=== PATIENT | female | born 1995 | race Caucasian/White ===

== ENCOUNTER 2017-07-31 13:26 | Emergency (ER) | payer BC ==
[2017-07-31] MEDS ORDERED: ACETAMINOPHEN TAB 500 MG TAB PO STA (13:57)
[2017-07-31] MEDS ORDERED: cefTRIAXone IN SWFI 1,000 MG/10 ML SYRINGE IVP STA (13:57)
[2017-07-31] MEDS ORDERED: KETOROLAC 30 MG/ML 1 ML VIAL IVP STA (13:57)
[2017-07-31] MEDS ORDERED: ONDANSETRON 4 MG/2 ML VIAL IVP STA (14:22)
--- NOTE | 2017-07-31 14:22 | ED ---
General Adult HPI - General Chief complaint: Fever Stated complaint: fever/LLQ & flank pain Time Seen by Provider: 07/31/17 13:57 Source: patient, RN notes reviewed Mode of arrival: ambulatory Limitations: no limitations - History of Present Illness Initial comments: 22 yo female presents to the ER with cc of fever. Patient has had this fever starting today. She also admits to some dysuria and left flank pain. She states she has generalized body aches as well. She went to little cough cold like symptoms. She went to urgent care and they were suspicious for UTI and they sent her here. No Motrin or Tylenol today. Patient states that now health history no meds every day. Patient denies any recent shortness of breath , chest pain, abdominal pain, nausea vomiting, numbness or tingling, hematuria , constipation or diarrhea, headaches or visual changes, or any other current symptoms. - Related Data Home Medications Medication Instructions Recorded Confirmed Amoxicillin 1,000 mg PO ONCE 07/31/17 07/31/17 Ibuprofen [Motrin] 800 mg PO Q6H PRN 07/31/17 07/31/17 Tylenol Cold/Flu Liq 30 ml PO Q4H PRN 07/31/17 07/31/17 Previous Rx's Medication Instructions Recorded Cephalexin [Keflex] 500 mg PO Q6HR #40 cap 07/31/17 Allergies Allergy/AdvReac Type Severity Reaction Status Date / Time No Known Allergies Allergy Verified 07/31/17 14:00 Review of Systems ROS Statement: Those systems with pertinent positive or pertinent negative responses have been documented in the HPI. ROS Other: All systems not noted in ROS Statement are negative. Past Medical History Past Medical History: No Reported History History of Any Multi-Drug Resistant Organisms: None Reported Past Surgical History: No Surgical Hx Reported Past Psychological History: No Psychological Hx Reported Smoking Status: Never smoker Past Alcohol Use History: Occasional Past Drug Use History: Marijuana General Exam - General Exam Comments Initial Comments: General: The patient is awake and alert, in no distress, and does not appear acutely ill. Eye: Pupils are equal, round. Ears, nose, mouth and throat: There are moist mucous membranes. Tympanic membranes normal bilaterally. No erythema in the posterior pharynx Neck: The neck is supple, there is no tenderness. Cardiovascular: There is a regular rate and rhythm. No murmur, rub or gallop is appreciated. Respiratory: Lungs are clear to auscultation, respirations are non-labored, breath sounds are equal. No wheezes, stridor, rales, or rhonchi. Gastrointestinal: Soft, non-distended, non-tender abdomen without masses or organomegaly noted. There is no rebound or guarding present. No CVA tenderness. Bowel sounds are unremarkable. Back: There is no tenderness to palpation in the midline. There is no obvious deformity. No rashes noted. Musculoskeletal: Normal ROM, no tenderness, There is no pedal edema. There is no calf tenderness or swelling. Sensation intact. Pulses equal bilaterally 2+. Neurological: CN II-XII intact, There are no obvious motor or sensory deficits. Coordination appears grossly intact. Speech is normal. Skin: Skin is warm and dry and no rashes or lesions are noted. Psychiatric: Cooperative, appropriate mood & affect, normal judgment. Limitations: no limitations Course Vital Signs 07/31/17 07/31/17 13:47 15:15 Temperature 102.2 F H 99.4 F Pulse Rate 106 H Respiratory 22 Rate Blood Pressure 133/67 O2 Sat by Pulse 96 Oximetry Medical Decision Making - Medical Decision Making 22-year-old female presents emergencydepartment with chief complaint of fever. At this time patient's lab work has been reviewed. This time we discussed suspicion for acute pyelonephritis. This time we did discuss that we like to admit the patient. She states that she would rather go home. This time she did receive IV antibiotics as well as IV fluids. Fever has improved. This time we discussed that we will discharge her home on outpatient antibiotics however she may get worse and she may require hospitalization. We discussed return parameters physically. We did discuss the importance of listening to the and to come back if this occurs. Patient and family stated they understood and management this plan. All questions have been answered. At this time they will be discharged home with proper follow-up information. - Lab Data Result diagrams: 07/31/17 14:15 07/31/17 14:15 Lab Results 07/31/17 07/31/17 07/31/17 Range/Units 14:15 14:15 14:15 WBC 14.7 H (4.0-11.0) k/uL RBC 4.72 (3.80-5.40) m/uL Hgb 14.0 (11.4-16.0) gm/dL Hct 42.7 (34.0-46.0) % MCV 90.6 (80.0-100.0) fL MCH 29.7 (25.0-35.0) pg MCHC 32.8 (31.0-37.0) g/dL RDW 11.8 (11.5-15.5) % Plt Count 248 (150-450) k/uL Neutrophils % 83 % Lymphocytes % 8 % Monocytes % 8 % Eosinophils % 1 % Basophils % 0 % Neutrophils # 12.1 H (1.3-7.7) k/uL Lymphocytes # 1.2 (1.0-4.8) k/uL Monocytes # 1.2 H (0-1.0) k/uL Eosinophils # 0.1 (0-0.7) k/uL Basophils # 0.0 (0-0.2) k/uL Sodium 136 L (137-145) mmol/L Potassium 4.0 (3.5-5.1) mmol/L Chloride 99 (98-107) mmol/L Carbon Dioxide 25 (22-30) mmol/L Anion Gap 12 mmol/L BUN 10 (7-17) mg/dL Creatinine 0.73 (0.52-1.04) mg/dL Est GFR (MDRD) Af Amer >60 (>60 ml/min/1.73 sqM) Est GFR (MDRD) Non-Af >60 (>60 ml/min/1.73 sqM) Glucose 108 H (74-99) mg/dL Calcium 9.9 (8.4-10.2) mg/dL Total Bilirubin 0.8 (0.2-1.3) mg/dL AST 17 (14-36) U/L ALT 23 (9-52) U/L Alkaline Phosphatase 67 (38-126) U/L Total Protein 7.2 (6.3-8.2) g/dL Albumin 4.2 (3.5-5.0) g/dL Urine Color Urine Appearance (Clear) Urine pH (5.0-8.0) Ur Specific [place] (1.001-1.035) Urine Protein (Negative) Urine Glucose (UA) (Negative) Urine Ketones (Negative) Urine Blood (Negative) Urine Nitrite (Negative) Urine Bilirubin (Negative) Urine Urobilinogen (<2.0) mg/dL Ur Leukocyte Esterase (Negative) Urine RBC (0-5) /hpf Urine WBC (0-5) /hpf Urine WBC Clumps (None) /hpf Urine Bacteria (None) /hpf Urine Mucus (None) /hpf Urine HCG, Qual (Not Detectd) Influenza Type A RNA Not Detected (Not Detectd) Influenza Type B (PCR) Not Detected (Not Detectd) 07/31/17 07/31/17 Range/Units 14:15 14:15 WBC (4.0-11.0) k/uL RBC (3.80-5.40) m/uL Hgb (11.4-16.0) gm/dL Hct (34.0-46.0) % MCV (80.0-100.0) fL MCH (25.0-35.0) pg MCHC (31.0-37.0) g/dL RDW (11.5-15.5) % Plt Count (150-450) k/uL Neutrophils % % Lymphocytes % % Monocytes % % Eosinophils % % Basophils % % Neutrophils # (1.3-7.7) k/uL Lymphocytes # (1.0-4.8) k/uL Monocytes # (0-1.0) k/uL Eosinophils # (0-0.7) k/uL Basophils # (0-0.2) k/uL Sodium (137-145) mmol/L Potassium (3.5-5.1) mmol/L Chloride (98-107) mmol/L Carbon Dioxide (22-30) mmol/L Anion Gap mmol/L BUN (7-17) mg/dL Creatinine (0.52-1.04) mg/dL Est GFR (MDRD) Af Amer (>60 ml/min/1.73 sqM) Est GFR (MDRD) Non-Af (>60 ml/min/1.73 sqM) Glucose (74-99) mg/dL Calcium (8.4-10.2) mg/dL Total Bilirubin (0.2-1.3) mg/dL AST (14-36) U/L ALT (9-52) U/L Alkaline Phosphatase (38-126) U/L Total Protein (6.3-8.2) g/dL Albumin (3.5-5.0) g/dL Urine Color Yellow Urine Appearance Turbid H (Clear) Urine pH 5.5 (5.0-8.0) Ur Specific [place] 1.011 (1.001-1.035) Urine Protein 2+ H (Negative) Urine Glucose (UA) Negative (Negative) Urine Ketones 1+ H (Negative) Urine Blood Moderate H (Negative) Urine Nitrite Negative (Negative) Urine Bilirubin Negative (Negative) Urine Urobilinogen <2.0 (<2.0) mg/dL Ur Leukocyte Esterase Large H (Negative) Urine RBC 29 H (0-5) /hpf Urine WBC >182 H (0-5) /hpf Urine WBC Clumps Few H (None) /hpf Urine Bacteria Moderate H (None) /hpf Urine Mucus Many H (None) /hpf Urine HCG, Qual Not Detected (Not Detectd) Influenza Type A RNA (Not Detectd) Influenza Type B (PCR) (Not Detectd) Disposition Clinical Impression: Acute pyelonephritis Disposition: HOME SELF-CARE Condition: Stable Instructions: Kidney Infection (ED) Additional Instructions: Please use medication as discussed. Please follow up with family doctor if symptoms have not improved over the next two days. Please return to the emergency room if your symptoms increase or worsen or for any other concerns. Prescriptions: Cephalexin [Keflex] 500 mg PO Q6HR #40 cap Referrals: Ryder Johnson MD [STAFF PHYSICIAN] - 1-2 days Time of Disposition: 15:26
[2017-07-31 14:30] LABS: Basophils % (A) 0 %; Eosinophils # (A) 0.1 k/uL (0-0.7); Eosinophils % (A) 1 %; HCT 42.7 % (34.0-46.0); Lymphocytes # (A) 1.2 k/uL (1.0-4.8); Lymphocytes % (A) 8 %; MCH 29.7 pg (25.0-35.0); MCHC 32.8 g/dL (31.0-37.0); MCV 90.6 fL (80.0-100.0); Mean Platelet Volume 6.6; Monocytes # (A) 1.2 k/uL (0-1.0); Monocytes % (A) 8 %; Neutrophils # (A) 12.1 k/uL (1.3-7.7); Neutrophils % (A) 83 %; Platelet Count 248 k/uL (150-450); RBC 4.72 m/uL (3.80-5.40); RDW 11.8 % (11.5-15.5); WBC 14.7 k/uL (4.0-11.0)
[2017-07-31 14:36] LABS: Appearance,Urine Turbid (Clear); Bacteria,Urine Moderate /hpf; Bilirubin,Urine Negative (Negative); Blood,Urine Moderate (Negative); Color,Urine Yellow; Glucose,Urine (UA) Negative (Negative); Ketones,Urine 1+ (Negative); Leukocyte Esterase,Urine Large (Negative); Mucus,Urine Many /hpf; Nitrite,Urine Negative (Negative); PH, Urine 5.5 (5.0-8.0); Protein,Urine 2+ (Negative); RBC,Urine 29 /hpf (0-5); Specific Gravity,Urine 1.011 (1.001-1.035); Urobilinogen,Urine <2.0 mg/dL (<2.0); WBC,Urine >182 /hpf (0-5)
[2017-07-31 14:50] LABS: ALT 23 U/L (9-52); AST 17 U/L (14-36); Albumin 4.2 g/dL (3.5-5.0); Alkaline Phosphatase 67 U/L (38-126); Anion Gap 12 mmol/L; Blood Urea Nitrogen 10 mg/dL (7-17); Calcium 9.9 mg/dL (8.4-10.2); Carbon Dioxide 25 mmol/L (22-30); Chloride 99 mmol/L (98-107); Glucose 108 mg/dL (74-99); Sodium 136 mmol/L (137-145); Total Bilirubin 0.8 mg/dL (0.2-1.3); Total Protein 7.2 g/dL (6.3-8.2)
[2017-07-31] MEDS ORDERED: SODIUM CHLORIDE 0.9% 1,000 ML IV STA (15:15)
[2017-07-31 17:08] VITALS: BP 118/78; PULSE 75; RESP 17; TEMP 98.7
== END 2017-07-31 17:07 | disposition home or self-care (01) ==
LOC: EC 13:26
DX: N10 Acute pyelonephritis (principal)
CPT/HCPCS: 36415; 80053; 85025; 81001; 81025; 87040; 87086; 87502; 99283; 96374; 96375 ×2; 96361 ×2; J2405; J0696; J1885

== ENCOUNTER 2017-08-16 17:34 | Emergency (ER) | payer BC ==
[2017-08-16 17:39] VITALS: RESP 18
--- NOTE | 2017-08-16 18:14 | ED ---
Back Pain HPI - General Chief Complaint: Back Pain/Injury Stated Complaint: Back pain/ Fall Time Seen by Provider: 08/16/17 17:48 Source: patient Limitations: no limitations - History of Present Illness Initial Comments: 30-year-old female patient presents to the emergency department today complaining of left-sided back pain after an injury about 30 minutes prior to arrival. Patient states that she was wrestling with her brother when she fell and struck her back on the corner of a metal bed frame. Patient states that she is having significant pain to the left flank area. States that hurts to take a deep breath. States she also struck her left frank and does have swelling and pain to that area as well. She is able to ambulate. She denies any hemoptysis, shortness of breath, or chest pain. Denies hitting her head or losing consciousness during the horseplay. Patient denies any headache, neck pain, dizziness, weakness, abdominal pain, nausea, vomiting, or difficulties with bowel movements or urination. - Related Data Home Medications Medication Instructions Recorded Confirmed Acetaminophen [Tylenol Extra 1,000 mg PO Q6H PRN 08/16/17 08/16/17 Strength] Ibuprofen [Motrin Ib] 400 - 600 mg PO Q6H PRN 08/16/17 08/16/17 Allergies Allergy/AdvReac Type Severity Reaction Status Date / Time No Known Allergies Allergy Verified 08/16/17 18:03 Review of Systems ROS Statement: Those systems with pertinent positive or pertinent negative responses have been documented in the HPI. ROS Other: All systems not noted in ROS Statement are negative. Past Medical History Past Medical History: No Reported History History of Any Multi-Drug Resistant Organisms: None Reported Past Surgical History: No Surgical Hx Reported Past Psychological History: No Psychological Hx Reported Smoking Status: Never smoker Past Alcohol Use History: Occasional Past Drug Use History: Marijuana General Exam Limitations: no limitations General appearance: alert, in no apparent distress, other (This is a well- developed, well-nourished adult female patient in no acute distress. Vital signs upon presentation are temperature 97.8F, pulse 77, respirations 18, blood pressure 131/73, pulse ox 99% on room air.) Eye exam: Present: normal appearance, PERRL, EOMI. Absent: scleral icterus, conjunctival injection, periorbital swelling ENT exam: Present: normal exam, normal oropharynx, mucous membranes moist Neck exam: Present: normal inspection, full ROM, other (Nontender, no step-off, no deformity to firm midline palpation of the posterior cervical spine. Full range of motion without pain or limitation.). Absent: tenderness, meningismus, lymphadenopathy Respiratory exam: Present: normal lung sounds bilaterally. Absent: respiratory distress, wheezes, rales, rhonchi, stridor Cardiovascular Exam: Present: regular rate, normal rhythm, normal heart sounds. Absent: systolic murmur, diastolic murmur, rubs, gallop, clicks Extremities exam: Present: full ROM, tenderness (Left anterior frank), normal capillary refill, other (There is hematoma and tenderness over the There is hematoma, swelling, and tenderness to the left anterior frank. Skin is otherwise pink, warm, and dry. Cap refills less than 3 seconds. Pedal and posttibial pulses are 2+ and equal bilaterally). Absent: normal inspection, pedal edema, joint swelling, calf tenderness Back exam: Present: paraspinal tenderness (Left thoracic paraspinal tenderness.) , vertebral tenderness (Thoracic vertebral tenderness), other (Left flank tenderness, swelling, erythema, and abrasion noted over the left flank area). Absent: normal inspection Neurological exam: Present: alert, oriented X3, CN II-XII intact Psychiatric exam: Present: normal affect, normal mood Skin exam: Present: warm, dry, intact, normal color. Absent: rash Course Vital Signs 08/16/17 17:37 Temperature 97.8 F Pulse Rate 77 Respiratory 18 Rate Blood Pressure 131/73 O2 Sat by Pulse 99 Oximetry Medical Decision Making - Medical Decision Making 22-year-old female patient presented to the emergency department today for evaluation of left-sided back pain and left leg pain after injury today. Physical examination reveal erythema and abrasion to the left flank region, hematoma and swelling to the left frank. Neurovascular status is intact. Urinalysis is negative for any blood or infection. HCG was negative. X-rays of the chest, ribs, thoracic spine, and leg were negative for any acute fracture or other abnormalities. I did discuss findings with the patient. She is educated regarding ice and rest. She is instructed to take ibuprofen for for pain control. She is instructed to follow-up with her primary care physician for recheck in 1-2 days. She is instructed to return here immediately for any new, worsening, or concerning symptoms. She verbalizes understanding and agrees this plan. - Lab Data Lab Results 08/16/17 08/16/17 Range/Units 18:15 18:15 Urine Color Yellow Urine Appearance Clear (Clear) Urine pH 5.5 (5.0-8.0) Ur Specific [place] 1.020 (1.001-1.035) Urine Protein Trace H (Negative) Urine Glucose (UA) Negative (Negative) Urine Ketones Negative (Negative) Urine Blood Negative (Negative) Urine Nitrite Negative (Negative) Urine Bilirubin Negative (Negative) Urine Urobilinogen <2.0 (<2.0) mg/dL Ur Leukocyte Esterase Negative (Negative) Urine HCG, Qual Not Detected (Not Detectd) - Radiology Data Radiology results: report reviewed, image reviewed 5 views of the left ribs and chest show heart and mediastinum are normal. Lungs are clear. There is no sign of pleural effusion or pneumothorax. The left ribs appear intact. Impression by Dr. Witt shows normal chest with normal left ribs. 3 views of the thoracic vertebra show normal states and alignment. Posterior elements are intact. There is no paraspinal mass. Impression by Dr. Witt shows normal thoracic spine. 2 views of the left tib-fib show no fracture nor dislocation. Knee joint ankle joint. Intact. Soft tissues are normal. Impression by Dr. Witt shows normal left tibia and fibula. Disposition Clinical Impression: Back contusion, Contusion of left lower leg Disposition: HOME SELF-CARE Condition: Good Instructions: Contusion in Adults (ED), Abrasion (ED) Additional Instructions: Apply ice to the painful areas 20 minutes at a time at least 4 times daily. Continue taking ibuprofen for pain control. Pelvic a primary care physician for recheck in 1-2 days. Return here immediately for any new, worsening, or concerning symptoms. Referrals: None,Stated [Primary Care Provider] - 1-2 days Time of Disposition: 19:24
[2017-08-16 18:37] LABS: Appearance,Urine Clear (Clear); Bilirubin,Urine Negative (Negative); Blood,Urine Negative (Negative); Color,Urine Yellow; Glucose,Urine (UA) Negative (Negative); Ketones,Urine Negative (Negative); Leukocyte Esterase,Urine Negative (Negative); PH, Urine 5.5 (5.0-8.0); Protein,Urine Trace (Negative); Urobilinogen,Urine <2.0 mg/dL (<2.0)
--- NOTE | 2017-08-16 19:11 | XR ---
EXAMINATION TYPE: XR ribs LT w pa chest xray DATE OF EXAM: 08/16/2017 COMPARISON: NONE HISTORY: Rib pain TECHNIQUE: 5 views FINDINGS: Heart and mediastinum are normal. Lungs are clear. There is no sign of pleural effusion or pneumothorax. The left ribs appear intact. IMPRESSION: Normal chest. Normal left ribs.
--- NOTE | 2017-08-16 19:12 | XR ---
EXAMINATION TYPE: XR thoracic spine complete DATE OF EXAM: 08/16/2017 COMPARISON: NONE HISTORY: Rib pain. Back pain TECHNIQUE: 3 views FINDINGS: Thoracic vertebra have normal spacing and alignment. Posterior elements are intact. There i s no paraspinal mass. IMPRESSION: Normal thoracic spine.
--- NOTE | 2017-08-16 19:13 | XR ---
EXAMINATION TYPE: XR tibia fibula LT DATE OF EXAM: 08/16/2017 COMPARISON: NONE HISTORY: Pain TECHNIQUE: 2 views FINDINGS: I see no fracture nor dislocation. Knee joint and ankle joint appear intact. Soft tissues a ppear normal. IMPRESSION: Normal left tibia and fibula exam.
[2017-08-16 19:47] VITALS: BP 118/87; PULSE 87; TEMP 98.4
== END 2017-08-16 19:46 | disposition home or self-care (01) ==
LOC: EC 17:34
DX: S80.12XA Contusion of left lower leg, initial encounter (principal); S20.222A Contusion of left back wall of thorax, initial encounter; S30.811A Abrasion of abdominal wall, initial encounter; W01.190A Fall on same level from slipping, tripping and stumbling with subsequent striking against furniture, initial encounter; Y93.72 Activity, wrestling
CPT/HCPCS: 72072; 81003; 81025; 99283

== ENCOUNTER → 2018-12-27 | Outpatient (CLI) | payer BC ==
--- NOTE | 2018-12-30 07:49 | USB ---
Reason for exam: clinical finding. Physical Findings: Nurse Summary: Patient complains of left breast lump pain x 2 weeks, clear discharge with compression 1 month ago, questionable cluster of cysts versus dense tissue at patient's area of concern (nurse mj). US Breast LT Left complete breast ultrasound includes all four quadrants, the retroareolar region and axilla. Finding demonstrates a 0.8 x 0.6 x 2.6cm oval, mixed, cyst cluster at 1 o'clock. These results were verbally communicated with the patient and result sheet given to the patient on 12/27/18. ASSESSMENT: Probably benign, BI-RAD 3 RECOMMENDATION: Clinical management of both breasts. Manage patient on a clinical basis.
== END | disposition home or self-care (01) ==
LOC: RADUSWWP 14:19
PROVIDERS: ATTEND Family Medicine
DX: N60.02 Solitary cyst of left breast (principal)

== ENCOUNTER 2024-04-09 05:55 | Inpatient (IN) | payer BC ==
[2024-04-09] MEDS ORDERED: TERBUTALINE 1 MG/ML VIAL SQ PRN (06:17)
[2024-04-09] MEDS ORDERED: OXYTOCIN 10 UNIT/ML 1 ML VIAL IM PRN (06:17)
[2024-04-09] MEDS ORDERED: CARBOPROST TROMETHAMINE 250 MCG/ML 1 ML AMP IM PRN (06:17)
[2024-04-09] MEDS ORDERED: TRANEXAMIC 1,000 MG/100ML-NACL 1,000 MG in EMPTY BAG 1 BAG IV PRN (06:17)
[2024-04-09] MEDS ORDERED: miSOPROStoL 200 MCG TAB RECTAL PRN (06:17)
[2024-04-09] MEDS ORDERED: METHYLERGONOVINE 0.2 MG/ML 1 ML AMP IM PRN (06:17)
[2024-04-09] MEDS ORDERED: LIDOCAINE 0.5% (PF) 5 MG/ML (50 ML SDV) SQ PRN (06:17)
[2024-04-09] MEDS ORDERED: miSOPROStoL 200 MCG TAB PO PRN (06:17)
[2024-04-09] MEDS: LACTATED RINGERS 1,000 ML IV SCH (06:47)
[2024-04-09] MEDS: OXYTOCIN 30 UNITS/500 ML NS 30 UNIT in SALINE 1 500ML.BAG IV SCH ×2 (07:19→13:41)
--- NOTE | 2024-04-09 08:03 | P.HPOB ---
History of Present Illness H&P Date: 04/09/24 Chief Complaint: induction of labor 29 year old presents at 40 weeks gestation for induction of labor. Her cervix is 1-2/80/-2 and she is farshad irregularly. heart tones 140 with moderate variability and reactive. Review of Systems All systems: negative Constitutional: Denies chills, Denies fever Eyes: denies blurred vision, denies pain Ears, nose, mouth and throat: Denies headache, Denies sore throat Cardiovascular: Denies chest pain, Denies shortness of breath Respiratory: Denies cough Gastrointestinal: Denies abdominal pain, Denies diarrhea, Denies nausea, Denies vomiting Genitourinary: Denies dysuria, Denies hematuria Musculoskeletal: Denies myalgias Integumentary: Denies pruritus, Denies rash Neurological: Denies numbness, Denies weakness Psychiatric: Denies anxiety, Denies depression Endocrine: Denies fatigue, Denies weight change Past Medical History Past Medical History: No Reported History History of Any Multi-Drug Resistant Organisms: None Reported Past Surgical History: No Surgical Hx Reported Additional Past Anesthesia/Blood Transfusion Reaction / Comment(s): Hard to wake up after "fentanyl used to be put under for a dental implant" a few years ago. Past Psychological History: No Psychological Hx Reported Smoking Status: Never smoker Past Alcohol Use History: None Reported Past Drug Use History: Marijuana Additional Drug Use History / Comment(s): THC use prior to . - Past Family History Mother Family Medical History: No Reported History Father Family Medical History: No Reported History Medications and Allergies Home Medications Medication Instructions Recorded Confirmed Type Amoxicillin 1 cap PO BID 04/09/24 04/09/24 History Allergies Allergy/AdvReac Type Severity Reaction Status Date / Time No Known Allergies Allergy Verified 08/16/17 18:03 Exam Osteopathic Statement: *. No significant issues noted on an osteopathic structural exam other than those noted in the History and Physical/Consult. Vital Signs Temp Pulse Resp BP Pulse Ox 04/09/24 07:08 96.9 F L 74 18 115/64 99 Intake and Output 04/08/24 04/09/24 04/09/24 22:59 06:59 14:59 Other: Weight 87.09 kg 87.09 kg Heart: Regular rate and rhythm Lungs: Clear to auscultation bilaterally Abdomen: Soft, nontender Extremities: Negative Homans sign Assessment and Plan (1) Elective induction of labor planned Current Visit: Yes Status: Acute Code(s): [id number] - SNOMED Code(s): 548253092 Plan: 1. induction of labor with amniotomy and pitocin 2. anticipate normal vaginal delivery
[2024-04-09 09:29] LABS: Basophils % (A) 0 %; Eosinophils # (A) 0.1 k/uL (0-0.7); Eosinophils % (A) 1 %; HCT 34.7 % (34.0-46.0); HGB 11.9 gm/dL (11.4-16.0); Lymphocytes # (A) 1.4 k/uL (1.0-4.8); Lymphocytes % (A) 12 %; MCH 30.2 pg (25.0-35.0); MCHC 34.2 g/dL (31.0-37.0); MCV 88.3 fL (80.0-100.0); Mean Platelet Volume 7.7; Monocytes # (A) 0.6 k/uL (0-1.0); Monocytes % (A) 5 %; Neutrophils # (A) 9.7 k/uL (1.3-7.7); Neutrophils % (A) 81 %; Platelet Count 202 k/uL (150-450); RBC 3.93 m/uL (3.80-5.40); RDW 13.1 % (11.5-15.5)
[2024-04-09] MEDS ORDERED: BUTORPHANOL 2 MG/ML 1 ML VIAL IV PRN (11:52)
[2024-04-09] MEDS: BUTORPHANOL 1 MG/ML 1 ML VIAL IV PRN (12:06)
[2024-04-09] MEDS ORDERED: HYDROCORTISONE 2.5% RECTAL CREAM 30 GM TUBE RECTAL PRN (14:17)
[2024-04-09] MEDS ORDERED: diphenhydrAMINE 50 MG CAP PO PRN (14:17)
[2024-04-09] MEDS ORDERED: SIMETHICONE 80 MG CHEWABLE PO PRN (14:17)
[2024-04-09] MEDS ORDERED: LANOLIN CREAM 1 GM TUBE TOPICAL PRN (14:17)
[2024-04-09] MEDS ORDERED: ZOLPIDEM 5 MG TAB PO PRN (14:17)
[2024-04-09] MEDS ORDERED: diphenhydrAMINE 25 MG CAP PO PRN (14:17)
[2024-04-09] MEDS ORDERED: diphenhydrAMINE 50 MG/ML 1 ML VIAL IVP PRN ×2 (14:17)
[2024-04-09] MEDS: IBUPROFEN 800 MG TAB PO SCH (15:12)
[2024-04-09] MEDS: BENZOCAINE/MENTHOL SPRAY 1 GM/SPRAY AEROSOL TOPICAL PRN (16:08)
[2024-04-09] MEDS: ACETAMINOPHEN TAB 500 MG TAB PO SCH (17:41)
[2024-04-09] MEDS: SENNOSIDES-DOCUSATE SODIUM 1 EACH TAB PO SCH (20:32)
[2024-04-09 21:04] VITALS: RESP 16
[2024-04-10 05:40] LABS: Basophils % (A) 0 %; Eosinophils # (A) 0.1 k/uL (0-0.7); Eosinophils % (A) 1 %; HCT 30.3 % (34.0-46.0); HGB 10.6 gm/dL (11.4-16.0); Lymphocytes # (A) 1.9 k/uL (1.0-4.8); Lymphocytes % (A) 14 %; MCH 31.1 pg (25.0-35.0); MCHC 35.1 g/dL (31.0-37.0); MCV 88.7 fL (80.0-100.0); Monocytes # (A) 0.7 k/uL (0-1.0); Monocytes % (A) 5 %; Neutrophils # (A) 10.5 k/uL (1.3-7.7); Neutrophils % (A) 79 %; Platelet Count 225 k/uL (150-450); RBC 3.41 m/uL (3.80-5.40); RDW 13.2 % (11.5-15.5); WBC 13.4 k/uL (3.8-10.6)
[2024-04-10 08:12] VITALS: BP 109/64; PULSE 80; TEMP 98.2
--- NOTE | 2024-04-10 09:40 | P.PROBDLV ---
Vaginal Delivery Note - . Vaginal Delivery Note: 29 year old presents at 40 weeks gestation for induction of labor. Her cervix is 1-2/80/-2 and she is farshad irregularly. heart tones 140 with moderate variability and reactive. Amniotomy performed at 7:40 AM and clear fluid noted. When she was uncomfortable she had some Stadol for pain management. Her cervix was completely dilated at 1325. She pushed, delivered a viable male infant over intact perineum at 1339. Head delivered OA, anterior shoulder delivered gentle downward guidance. Posterior shoulder and rest of body. Nose and mouth bulb suctioned, cord clamped and cut, placed mother's abdomen. Apgars 9, 9, weight 7 lbs. 7 oz. Placenta delivered spontaneously, intact with three-vessel cord at 1341. Vagina, cervix, perineum inspected. Bilateral labial lacerations were noted but no need for repair. Mother and baby in stable condition.
--- NOTE | 2024-04-10 09:41 | P.DS ---
Providers Date of admission: 04/09/24 05:55 Expected date of discharge: 04/10/24 Attending physician: Sarah Holland Primary care physician: Stated None - Discharge Diagnosis(es) (1) Elective induction of labor planned Current Visit: Yes Status: Resolved (2) Status post normal vaginal delivery Current Visit: Yes Status: Acute Hospital Course: Seen and examined. Denies nausea, vomiting, chest pain, shortness of breath or calf pain. Patient will be discharged home day #1 in stable condition to follow-up with me in 6 weeks. Plan - Discharge Summary New Discharge Prescriptions: No Action Amoxicillin 1 cap PO BID Discharge Medication List Amoxicillin 1 cap PO BID 04/09/24 [History] Follow up Appointment(s)/Referral(s): Sarah Holland DO [Doctor of Osteopathic Medicine] - 05/20/24 3:00 pm Discharge Disposition: HOME SELF-CARE
== END 2024-04-10 15:40 | disposition home or self-care (01) | DRG 807 ==
LOC: 4FBP 05:55
PROVIDERS: ADMIT Obstetrics & Gynecology; ATTEND Obstetrics & Gynecology
PROC: 10E0XZZ Delivery of Products of Conception, External Approach (ICD-10-PCS; principal; 2024-04-09)
PROC: 0HQ9XZZ Repair Perineum Skin, External Approach (ICD-10-PCS; 2024-04-09)
PROC: 10907ZC Drainage of Amniotic Fluid, Therapeutic from Products of Conception, Via Natural or Artificial Opening (ICD-10-PCS; 2024-04-09)
DX: O70.0 First degree perineal laceration during delivery (principal); Z37.0 Single live birth; Z3A.40 40 weeks gestation of pregnancy
CPT/HCPCS: 85025; 86850; 86900; 86901